=== PATIENT | female | born 1940 | race Caucasian/White ===

== ENCOUNTER → 2017-04-05 | Outpatient (CLI) | payer MEDICARE, BC ==
[~2017-04-05] MED LIST: AMARYL 2MG T2 MG/TAB PO; CELEBREX 200MG200 MG PO; CHROMIUM PICOLI1 TAB PO; CIPRO 500MG TA500 MG PO; COLON HEALTH PO; FISH OIL CONC1000 MG PO; NORCO 325 MG-51 TAB PO; PRILOSEC 20MG20 MG PO; PROVENTIL0.09 MG/A1 IH; SLOW-MAG 6464 MG/TAB PO; SULFAZINE500 MG PO; ZITHROMAX Z PA250 MG PO; ZOFRAN 4MG T4 MG/TAB PO
== END ==
LOC: MC.RAD 11:00
DX: Z12.31 Encounter for screening mammogram for malignant neoplasm of breast (principal); Z85.3 Personal history of malignant neoplasm of breast

== ENCOUNTER → 2018-05-30 | Outpatient (CLI) | payer MEDICARE, BC | LOC: MC.RAD 10:00 | DX: Z12.31 Encounter for screening mammogram for malignant neoplasm of breast (principal) ==